=== PATIENT | female | born 1980 | race Two or more races ===

== ENCOUNTER 2016-04-28 20:00 | Emergency (ER) | payer MEDICAID ==
[~2016-04-28] VITALS: Ht 170.2 cm; Wt 104.3 kg
[~2016-04-28 20:00] MED LIST: PHE100C PO
[2016-04-28 20:45] LABS: Basophils # (auto) 0 uL; Basophils % (auto) 0.3 % (0.0-2.0); Eosinophils # (auto) 0.4 uL; Eosinophils % (auto) 4.7 % (0.0-7.0); Hematocrit 41.8 % (36.0-46.0); Hemoglobin 13.4 g/dL (12.2-16.2); Lymphocytes # (auto) 1.9 uL; Lymphocytes % (auto) 22.6 % (10.0-50.0); Mean Corpuscular Hemoglobin 27.8 pg (28.0-32.0); Mean Corpuscular Hgb Conc. 32.2 g/dL (32.0-36.0); Mean Corpuscular Volume 86.4 fL (80.0-100.0); Mean Platelet Volume 8.5 fL (7.4-10.4); Monocytes # (auto) 0.4 uL; Monocytes % (auto) 4.7 % (0.0-12.0); Neutrophils # (auto) 5.5 uL; Neutrophils % (auto) 67.7 % (37.0-80.0); Platelet Count (auto) 296 10^3/uL (140-450); Red Cell Distribution Width 15.7 % (11.6-16.0); White Blood Cell 8.2 10^3/uL (4.4-10.8)
[2016-04-28 21:06] LABS: Albumin 3.7 g/dL (3.4-5.0); Calcium 8.4 mg/dL (8.5-10.1); Potassium 3.6 mmol/L (3.5-5.1)
[2016-04-28 21:08] LABS: BUN/Creatinine Ratio 15.9
[2016-04-28 21:10] LABS: Bilirubin, Total 0.3 mg/dL (0.2-1.0)
[2016-04-28] MEDS ORDERED: PHENYTOIN SODIUM 100 MG CAP PO ONE (21:45)
[2016-04-28] MEDS ORDERED: PHENYTOIN IV DILANTIN 500 MG in SODIUM CHL 0.9% 100 ML IV ONE (21:45)
[2016-04-28] MEDS ORDERED: PHENYTOIN SODIUM 50 MG/ML 5ML INJ VIAL IV ONE (21:49)
[2016-04-28 23:23] VITALS: BP 109/69
== END 2016-04-28 23:24 | disposition home or self-care (01) ==
LOC: ER 20:27
DX: G40.909 Epilepsy, unspecified, not intractable, without status epilepticus (principal); R79.89 Other specified abnormal findings of blood chemistry
CPT/HCPCS: 36415; 80053; 80185; 85025; 94761; 96365; 99284; J1165

== ENCOUNTER 2017-04-15 07:39 | Emergency (ER) | payer OTHER ==
[~2017-04-15] VITALS: Ht 162.6 cm; Wt 108.9 kg
[2017-04-15 08:34] LABS: Basophils # (auto) 0 uL; Basophils % (auto) 0.8 % (0.0-2.0); Eosinophils # (auto) 0.4 uL; Eosinophils % (auto) 8.5 % (0.0-7.0); Hematocrit 42.1 % (36.0-46.0); Lymphocytes % (auto) 20.8 % (10.0-50.0); Mean Corpuscular Hemoglobin 29.6 pg (28.0-32.0); Mean Corpuscular Hgb Conc. 33.3 g/dL (32.0-36.0); Mean Corpuscular Volume 88.9 fL (80.0-100.0); Monocytes # (auto) 0.3 uL; Monocytes % (auto) 7.3 % (0.0-12.0); Neutrophils # (auto) 2.9 uL; Neutrophils % (auto) 62.6 % (37.0-80.0); Nucleated Red Blood Cells % 0.1 %; Platelet Count (auto) 249 10^3/uL (140-450); Red Blood Cells 4.73 10^6/uL (4.0-5.20); Red Cell Distribution Width 15.4 % (11.8-14.3); White Blood Cell 4.6 10^3/uL (4.4-10.8)
[2017-04-15 08:58] LABS: Albumin 3.5 g/dL (3.4-5.0); BUN/Creatinine Ratio 9.4; Calcium 8.4 mg/dL (8.5-10.1); Total Protein 7.6 g/dL (6.4-8.2)
[2017-04-15] MEDS ORDERED: PHENYTOIN SODIUM 100 MG CAP PO ONE (09:45)
[2017-04-15] MEDS ORDERED: PHENYTOIN IV DILANTIN 500 MG in SODIUM CHL 0.9% 100 ML IV ONE (09:45)
[2017-04-15 10:18] VITALS: BP 124/72
== END 2017-04-15 11:03 | disposition home or self-care (01) ==
LOC: ER 07:39 → EDBD 07:39 → ER 11:03
DX: G40.909 Epilepsy, unspecified, not intractable, without status epilepticus (principal)
CPT/HCPCS: 36415; 80053; 80185; 85025; 94761; 96365; 99284; J1165; J7030